=== PATIENT | male | born 2000 | race Caucasian/White ===

== ENCOUNTER 2021-06-15 09:26 | Emergency (ER) | payer BC ==
[2021-06-15] MEDS ORDERED: Lidocaine 1% 10 ML MDV INJECT ONE (10:20)
[2021-06-15] MEDS ORDERED: Diphtheria,Pertussis(Acell),Tetanus Vaccine 0.5 ML Syringe IM ONE (10:50)
--- NOTE | 2021-06-15 11:47 | EDM.PDOC ---
ED HPI GENERAL MEDICAL PROBLEM - General Chief Complaint: Laceration Stated Complaint: THUMB LAC Time Seen by Provider: 06/15/21 10:12 Source of Information: Reports: Patient History Limitations: Reports: No Limitations - History of Present Illness INITIAL COMMENTS - FREE TEXT/NARRATIVE: 20-year-old male presents the emergency department today with a laceration noted to his right thumb. Patient states that just prior to arrival he was cutting some pipe at work with a razor blade and sliced his palmar surface of his right thumb from the nailbed anteriorly. Bleeding is controlled. Patient does not know when his last tetanus shot was. Right Finger-Thumb Pain Score (Numeric/FACES): 5 - Related Data Allergies Allergy/AdvReac Type Severity Reaction Status Date / Time No Known Allergies Allergy Verified 06/15/21 10:14 Home Meds: Home Meds . [No Known Home Meds] 06/15/21 [History] Past Medical History - Past Health History Medical/Surgical History: Denies Medical/Surgical History Social & Family History - Tobacco Use Tobacco Use Status *Q: Never Tobacco User ED ROS GENERAL - Review of Systems Review Of Systems: Comprehensive ROS is negative, except as noted in HPI. ED EXAM, SKIN/RASH Exam: See Below Exam Limited By: No Limitations General Appearance: Alert, WD/WN, No Apparent Distress Ears: Normal External Exam, Hearing Grossly Normal Nose: Normal Inspection Throat/Mouth: Normal Inspection, Normal Lips, Normal Voice, No Airway Compromise Head: Atraumatic Neck: Normal Inspection, Supple Respiratory/Chest: No Respiratory Distress, No Accessory Muscle Use Cardiovascular: Normal Peripheral Pulses, Regular Rate, Rhythm Peripheral Pulses: 2+: Radial (L), Radial (R) GI/Abdominal: No Distention (Male) Exam: Deferred Rectal (Males) Exam: Deferred Back Exam: Normal Inspection Extremities: Normal Range of Motion, No Pedal Edema, Normal Capillary Refill. No: Normal Inspection (2 cm laceration noted to the palmar aspect of his right thumb running vertically from the nailbed) Neurological: Alert, Oriented, Normal Cognition Psychiatric: Normal Affect, Normal Mood Skin: Warm, Dry, Intact, Normal Color, No Rash Location, Skin: Upper Extremity, Right Characteristics: Linear Lymphatic: No Adenopathy ED SKIN PROCEDURES - Laceration/Wound Repair Right Digit - 1st (Thumb) Appearance: Superficial Anesthetic Type: Local Local Anesthesia - Lidocaine (Xylocaine): 1% Plain Local Anesthetic Volume: 2cc Closed with: Sutures Lac/Wound length In cm: 2 Suture Size: 5-0 # of Sutures: 9 Suture Type: Nylon, Interrupted Course - Vital Signs Text/Narrative:: As stated above, patient presents with a laceration to his medial thumb running vertically on the palmar surface from the nailbed towards the DIP joint. Laceration will need to be repaired with sutures. Last Recorded V/S: Last Vital Signs Temp 98.2 F 06/15/21 10:11 Pulse 89 06/15/21 10:11 Resp 16 06/15/21 10:11 BP 155/89 H 06/15/21 10:11 Pulse Ox 100 06/15/21 10:11 - Orders/Labs/Meds Orders: Active Orders 24 hr Category Date Time Status Vaccine to be Administered/Admin Charge [RC] ASDIRECTED Care 06/15/21 10:50 Active Meds: Medications Discontinued Medications Generic Name Dose Route Start Last Admin Trade Name Freq PRN Reason Stop Dose Admin Diphtheria/Tetanus/Acell Pertussis 0.5 ml 06/15/21 10:50 Diphtheria,Pertussis(Acell),Tetanus Vaccine 0.5 Ml Syringe IM 06/15/21 10:51 .ONCE ONE Lidocaine HCl 10 ml 06/15/21 10:20 06/15/21 10:45 Lidocaine 1% 10 Ml Mdv INJECT 06/15/21 10:21 10 ml ONETIME ONE Administration - Re-Assessments/Exams Free Text/Narrative Re-Assessment/Exam: 06/15/21 11:46 Wound was prepped and draped in sterile fashion prior to suturing. Departure - Departure Time of Disposition: 11:48 Disposition: Home, Self-Care 01 Condition: Good Clinical Impression: Laceration of thumb without complication Qualifiers: Encounter type: initial encounter Laterality: right Qualified Code(s): S61.011A - Laceration without foreign body of right thumb without damage to nail, initial encounter - Discharge Information Instructions: Laceration Care, Adult, [id number], Sutures, Luke, or Adhesive Wound Closure, [id number] Referrals: PCP,None [Primary Care Provider] - Additional Instructions: You were seen in the emergency department today with a laceration to her right thumb. Laceration was repaired with 9 sutures. Dressing needs to remain in place for 24 hours. Once you remove the dressing, wash the wound twice daily with mild soap such as Dial or Jose F's baby shampoo. Pat the wound dry and apply a thin film of bacitracin and replace with a bandage. Watch for any signs and symptoms of infection such as increased warmth, redness, swelling or pus. Sutures can be removed in 7 to 10 days time. Sepsis Event Note (ED) - Evaluation Sepsis Screening Result: No Definite Risk - Focused Exam Vital Signs: Vital Signs Temp Pulse Resp BP Pulse Ox 06/15/21 10:11 98.2 F 89 16 155/89 H 100 - My Orders Last 24 Hours: My Active Orders 06/15/21 10:50 Vaccine to be Administered/Admin Charge [RC] ASDIRECTED - Assessment/Plan Last 24 Hours: My Active Orders 06/15/21 10:50 Vaccine to be Administered/Admin Charge [RC] ASDIRECTED
== END 2021-06-15 12:04 | disposition home or self-care (01) ==
LOC: JD.ED 09:26
DX: S61.011A Laceration without foreign body of right thumb without damage to nail, initial encounter (principal); Z23 Encounter for immunization; W26.8XXA Contact with other sharp object(s), not elsewhere classified, initial encounter; Y92.89 Other specified places as the place of occurrence of the external cause; Y99.0 Civilian activity done for income or pay
CPT/HCPCS: 12001; 90471; 90715; 99282-25